=== PATIENT | male | born 2000 | race Caucasian/White ===

== ENCOUNTER 2020-10-26 10:15 | Emergency (ER) | payer OTHER ==
[~2020-10-26] VITALS: Ht 172.7 cm; Wt 81.7 kg
[2020-10-26 10:39] LABS: ABSOLUTE NEUTROPHILS 5.6 thou/uL (1.4-8.2); BASOPHILS 0.6 % (0.0-2.0); EOSINOPHILS 1.2 % (0.0-3.0); HEMATOCRIT 44.2 % (42.0-52.0); HEMOGLOBIN 15.2 gm/dL (14.0-18.0); LYMPHOCYTES 36.4 % (24.0-44.0); MCH 29.5 pg (26.0-34.0); MCHC 34.4 g/dL (28.0-37.0); MCV 85.9 fL (80.0-100.0); MONOCYTES 6.8 % (1.0-8.0); PLATELET COUNT 366 thou/uL (150-400); RBC 5.14 mil/uL (4.50-6.00); RDW 12.7 % (10.5-14.5); WBC 10.3 thou/uL (4.0-11.0)
[2020-10-26 10:47] LABS: CREATININE 1.1 mg/dL (0.7-1.3); POTASSIUM 3.5 mmol/L (3.5-5.1)
[2020-10-26 10:53] LABS: ALBUMIN 4.5 g/dL (3.4-5.0); TOTAL BILIRUBIN 0.3 mg/dL (0.2-1.0); TOTAL PROTEIN 8.7 g/dL (6.4-8.2)
[2020-10-26 11:14] VITALS: BP 147/65
== END 2020-10-26 11:14 | disposition home or self-care (01) ==
LOC: ER 10:15
PROVIDERS: Emergency Medicine
DX: R51.9 Headache, unspecified (principal)

== ENCOUNTER 2021-02-21 17:34 | Emergency (ER) | payer OTHER ==
[~2021-02-21] VITALS: Ht 175.3 cm; Wt 77.1 kg
[2021-02-21] MEDS ORDERED: CLINDAMYCIN HC300 MG PO (17:59)
[2021-02-21] MEDS ORDERED: HYDROCODON-ACE1 EAC7 PO (17:59)
[2021-02-21 19:08] LABS: HEMATOCRIT 41.5 % (42.0-52.0); HEMOGLOBIN 14.3 gm/dL (14.0-18.0); MCH 29.3 pg (26.0-34.0); MCHC 34.4 g/dL (28.0-37.0); MCV 85.2 fL (80.0-100.0); PLATELET COUNT 209 thou/uL (150-400); RBC 4.88 mil/uL (4.50-6.00); RDW 13.1 % (10.5-14.5); WBC 5.3 thou/uL (4.0-11.0)
[2021-02-21 19:11] LABS: URINE BILIRUBIN 2+ (Negative); URINE BLOOD NEGATIVE (Negative); URINE CLARITY CLEAR; URINE COLOR YELLOW; URINE GLUCOSE-RANDOM* NEGATIVE (Negative); URINE KETONES 1+ (Negative); URINE LEUKOCYTES-REFLEX NEGATIVE (Negative); URINE NITRITE-REFLEX NEGATIVE (Negative); URINE PROTEIN (DIPSTICK) 1+ (Negative); URINE SPECIFIC GRAVITY 1.025 (1.005-1.035); URINE UROBILINOGEN >= 8.0 E.U./dl (0.2-1.0)
[2021-02-21 19:12] LABS: ICTOTEST (BILI CONFIRMATORY) Positive (Negative)
[2021-02-21 19:15] LABS: ANION GAP 10 mmol/L (7-16); BUN 9 mg/dL (7-18); CALCIUM 9.3 mg/dL (8.5-10.1); CHLORIDE 102 mmol/L (98-107); CO2 26 mmol/L (21-32); GLUCOSE 92 mg/dL (74-106); POTASSIUM 3.7 mmol/L (3.5-5.1); SODIUM 138 mmol/L (136-145)
[2021-02-21 19:19] LABS: MUCUS >6 Heavy strn/LPF (None Seen)
[2021-02-21 19:20] LABS: BACTERIA-REFLEX None Seen /HPF (None Seen); CASTS None Seen /LPF (None Seen); URINE RBC 1-2 Rare /HPF (NONE SEEN); URINE WBC-REFLEX 0-5 Rare /HPF (0-5)
[2021-02-21 19:21] LABS: CALCIUM OXALATE 0-3 Few /LPF (None Seen)
[2021-02-21 19:24] LABS: ALBUMIN 3.6 g/dL (3.4-5.0); LIPASE 54 U/L (73-393); SGOT 234 U/L (15-37); SGPT 322 U/L (16-63); TOTAL BILIRUBIN 1.7 mg/dL (0.2-1.0)
[2021-02-21 19:27] LABS: SQUAMOUS 0-3 Few /LPF (0-3)
[2021-02-21 19:56] LABS: ABSOLUTE NEUTROPHILS 2.5 thou/uL (1.4-8.2); ATYPICAL LYMPHS 18 %; METAMYELOCYTES 1 %
[2021-02-21 21:34] VITALS: BP 121/67
--- NOTE | 2021-02-22 12:52 | EKG ---
[address] [email or web address] [address] ELECTROCARDIOGRAM REPORT Name: ALISTAIR SHERWOOD Room #: [facility] [id number] Admission: 02/21/21 Attend Phys: Discharge: 02/21/21 Date of : 89 Report #: [id number] [facility] ED Test Date: 2021-02-21 Test Time: 18:29:44 Pat Name: ALISTAIR SHERWOOD Department: Room: Gender: Pi[employer] Helper: : 2000 Requested By: Thony Montoya Order Number: [id number] MD: Reinier Schneider Measurements Intervals [place] Rate: 75 P: 13 LA: 142 QRS: 92 QRSD: 111 T: 47 QT: 366 QTc: 409 Interpretive Statements Sinus rhythm Borderline right axis deviation No previous ECG available for comparison Electronically Signed On 02-22-2021 12:52:05 CDT by Reinier Schneider [email or web address] <ELECTRONICALLY SIGNED> By: Reinier Schneider MD, [facility] 02/22/21 1252 1829 1829 Reinier Schneider MD, FACC /EPI
== END 2021-02-21 21:34 | disposition home or self-care (01) ==
LOC: ER 17:34
PROVIDERS: Student in an Organized Health Care Education/Training Program
DX: B19.9 Unspecified viral hepatitis without hepatic coma (principal); R79.89 Other specified abnormal findings of blood chemistry; Z79.899 Other long term (current) drug therapy; Z88.8 Allergy status to other drugs, medicaments and biological substances